=== PATIENT | female | born 1995 | race Caucasian/White ===

== ENCOUNTER 2017-05-10 02:53 | Emergency (ER) | payer OTHER ==
[2017-05-10 03:22] VITALS: BP 125/73; PULSE 90; TEMP 97.7; BMI 19.1
[2017-05-10] MEDS ORDERED: KETOROLAC TROMETHAMINE 60 MG/2 ML VIAL IM ONE (03:45)
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
--- NOTE | 2017-05-10 03:54 | PDOC ---
Attending Attestation - Resident Resident Name: Brant Terry - ED Attending Attestation I have performed the following: I have examined & evaluated the patient, The case was reviewed & discussed with the resident, I agree w/resident's findings & plan, Exceptions are as noted
[2017-05-10] MEDS ORDERED: KETOROLAC TROMETHAMINE 60 MG/2 ML VIAL ONE (04:02)
== END 2017-05-10 05:58 | disposition home or self-care (01) ==
LOC: JER 02:53
PROC: 3E0233Z Introduction of Anti-inflammatory into Muscle, Percutaneous Approach (ICD-10-PCS; principal; 2017-05-10)
DX: S59.801A Other specified injuries of right elbow, initial encounter (principal); S69.82XA Other specified injuries of left wrist, hand and finger(s), initial encounter; V03.90XA Pedestrian on foot injured in collision with car, pick-up truck or van, unspecified whether traffic or nontraffic accident, initial encounter; Y92.414 Local residential or business street as the place of occurrence of the external cause; Y93.89 Activity, other specified
CPT/HCPCS: 73070-TC-RT; 73110-TC-LT; 73130-TC-LT; 73523-TC; 84703; 99281-25

== ENCOUNTER 2017-06-18 08:26 | Emergency (ER) | payer OTHER ==
[2017-06-18 08:35] VITALS: BP 116/61; PULSE 87; TEMP 98.7; BMI 18.8
[2017-06-18] MEDS ORDERED: ACETAMINOPHEN 500 MG TABLET (FP) PO ONE (09:05)
[2017-06-18] MEDS ORDERED: ACETAMINOPHEN 500 MG TABLET (FP) ONE (09:09)
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
[2017-06-18 09:21] LABS: PH,URINE 5.5 (5.0-8.0); URINE APPEARANCE CLEAR; URINE BILIRUBIN NEGATIVE (NEGATIVE); URINE BLOOD NEGATIVE (NEGATIVE); URINE COLOR LT. YELLOW; URINE GLUCOSE (UA) NEGATIVE (NEGATIVE); URINE KETONE 1+ (NEGATIVE); URINE NITRITE NEGATIVE (NEGATIVE); URINE UROBILINOGEN 0.2 mg/dL (0.2-1.0)
[2017-06-18 09:27] LABS: URINE PROTEIN 1+ (NEGATIVE)
[2017-06-18 09:53] LABS: GRANULAR CASTS 4 /lpf; URINE MUCUS MANY; URINE RBC 2 /hpf (0-3); URINE WBC 9 /hpf (3-5)
[2017-06-18 17:30] LABS: URINE LEUK ESTERASE Negative (NEGATIVE)
== END 2017-06-18 10:55 | disposition home or self-care (01) ==
LOC: JERFT 08:26
DX: S00.83XA Contusion of other part of head, initial encounter (principal); S10.83XA Contusion of other specified part of neck, initial encounter; S40.022A Contusion of left upper arm, initial encounter; Y04.2XXA Assault by strike against or bumped into by another person, initial encounter; Y93.89 Activity, other specified; Y92.038 Other place in apartment as the place of occurrence of the external cause; Y07.03 Male partner, perpetrator of maltreatment and neglect
CPT/HCPCS: 70450-TC; 81003; 81015; 84703; 99281-25

== ENCOUNTER 2018-05-13 09:38 | Emergency (ER) | payer SELFPAY ==
[2018-05-13 09:57] VITALS: BP 121/55; PULSE 91; TEMP 98.9; BMI 20.5
[2018-05-13] MEDS ORDERED: DEXAMETHASONE 4 MG TABLET (FP) PO STA (10:18)
[2018-05-13] MEDS ORDERED: DEXAMETHASONE SOD PHOSPHATE 10 MG/1 ML VIAL ONE (10:26)
--- NOTE | 2018-05-13 11:14 | PDOC ---
History of Present Illness - General Chief Complaint: Sore Throat Stated Complaint: SORE THROAT Time Seen by Provider: 05/13/18 10:08 History Source: Patient Exam Limitations: No Limitations - History of Present Illness Initial Comments: 05/13/18 11:08 22 yr female no pmhx with sore throat diff swallowing for 3 days no fever, also with bilateral conjunctivitis. Past History - Past Medical History Allergies/Adverse Reactions: Allergies Allergy/AdvReac Type Severity Reaction Status Date / Time No Known Allergies Allergy Verified 05/13/18 09:53 Home Medications: Ambulatory Orders No Home Medications 0 dose .ROUTE UTDICT 08/06/12 Ibuprofen 800 mg PO TID PRN #20 tablet 05/13/18 Sulfacetamide Sodium 10% [Bleph-10] 2 drop OU Q3H #1 bottle 05/13/18 Asthma: No Cancer: No Cardiac Disorders: No CVA: No COPD: No CHF: No DVT: No Dementia: No Diabetes: No Dialysis: No GI Disorders: No Disorders: No - Immunization History Immunization Up to Date: Yes - Suicide/Smoking/Psychosocial Hx Smoking Status: No Smoking History: Never smoked Have you smoked in the past 12 months: No Number of Cigarettes Smoked Daily: 0 Hx Alcohol Use: No Drug/Substance Use Hx: No Substance Use Type: None *Physical Exam - Vital Signs Last Vital Signs Temp Pulse Resp BP Pulse Ox 98.9 F 91 H 16 121/55 L 99 05/13/18 09:55 05/13/18 09:55 05/13/18 09:55 05/13/18 09:55 05/13/18 09:55 - Physical Exam General Appearance: Yes: Nourished, Appropriately Dressed HEENT: positive: EOMI, JAVON, Pharyngeal Erythema, Tonsillar Erythema, Other ( bilateral conjunctiva discharge white, pink conjunctiva ). negative: Tonsillar Exudate Neck: positive: Supple. negative: Tender, Lymphadenopathy (R), Lymphadenopathy (L) Respiratory/Chest: positive: Lungs Clear, Normal Breath Sounds Cardiovascular: positive: Regular Rhythm, Regular Rate Gastrointestinal/Abdominal: positive: Normal Bowel Sounds, Soft Musculoskeletal: positive: Normal Inspection Extremity: positive: Normal Capillary Refill, Normal Inspection, Normal Range of Motion Integumentary: positive: Normal Color, Dry, Warm Neurologic: positive: Fully Oriented, Alert, Normal Mood/Affect, Normal Response , Motor Strength 5/5 ED Treatment Course - Medications Given in the ED: ED Medications Discontinued Medications Generic Name Dose Route Start Last Admin Trade Name Danika PRN Reason Stop Dose Admin Dexamethasone 10 mg 05/13/18 10:18 05/13/18 10:27 Decadron - PO 05/13/18 10:19 10 mg ONCE STA Administration Medical Decision Making - Medical Decision Making 05/13/18 11:24 cc: sore throat , no fever dry cough bilateral conjunctiva red with scant discharge will give decadron now, check for strep no exudate however pt has swollen tonsils with erythema no abd pain or nvd no sick contacts *DC/Admit/Observation/Transfer Diagnosis at time of Disposition: Conjunctivitis Qualifiers: Conjunctivitis type: acute Acute conjunctivitis type: unspecified Laterality: bilateral Qualified Code(s): H10.33 - Unspecified acute conjunctivitis, bilateral Pharyngitis Qualifiers: Pharyngitis/tonsillitis etiology: unspecified etiology Qualified Code(s): J02.9 - Acute pharyngitis, unspecified - Discharge Dispostion Disposition: HOME Condition at time of disposition: Good - Prescriptions Prescriptions: Ibuprofen 800 mg PO TID PRN #20 tablet PRN Reason: Pain Sulfacetamide Sodium 10% [Bleph-10] 2 drop OU Q3H #1 bottle - Referrals - Patient Instructions Printed Discharge Instructions: DI for Viral Pharyngitis Additional Instructions: NEGATIVE RAPID STREP we will call you if the culture is positive in a few days drink pleanty of fluids to stay well hydrated use the eye drops as prescribed gargle with warm salt water 4-5 times a day throat lozengers as directed take ibuprofen as directed for pain - Post Discharge Activity Forms/Work/School Notes: Back to Work, Back to School
== END 2018-05-13 11:34 | disposition home or self-care (01) ==
LOC: JERFT 09:38
DX: J02.9 Acute pharyngitis, unspecified (principal); H10.33 Unspecified acute conjunctivitis, bilateral
CPT/HCPCS: 87070; 87077; 87430; 99281-25

== ENCOUNTER 2018-10-06 14:15 | Emergency (ER) | payer OTHER ==
[2018-10-06 14:50] VITALS: BP 127/67; PULSE 88; TEMP 98.2; BMI 20.3
--- NOTE | 2018-10-06 14:50 | PDOC ---
Rapid Medical Evaluation Chief Complaint: Nasal Bleeding Time Seen by Provider: 10/06/18 14:47 Medical Evaluation: Allergies Allergy/AdvReac Type Severity Reaction Status Date / Time No Known Allergies Allergy Verified 05/13/18 09:53 10/06/18 14:47 I have performed a brief in-person evaluation of this patient. The patient presents with a chief compliant of nose bleeding today. Patient reports nose bleeding and headaches States occurring more frequently. States bleeding occurs in sleep also Denies nausea Pertinent physical exam findings NAD HEENT: no active nose bleeding unlabored breathing I have ordered the following The patient will proceed to the ED for further evaluation. Discharge Disposition - Diagnosis Nosebleed - Referrals - Patient Instructions - Post Discharge Activity
--- NOTE | 2018-10-06 15:18 | PDOC ---
History of Present Illness - General Chief Complaint: Nasal Bleeding Stated Complaint: NOSEBLEED Time Seen by Provider: 10/06/18 14:47 History Source: Patient Exam Limitations: No Limitations - History of Present Illness Initial Comments: 10/06/18 15:16 The patient is a 23-year-old female with no past medical history who presents to the emergency department today for nosebleeds. Patient states that she has had 2 nosebleeds over the past 24 hours and one woke her from sleep. She states she was able to control the bleeding on her own at home. She presents for evaluation. No active bleeding at this time. Denies earache, sore throat, fever , difficulty breathing. Past History - Travel Traveled outside of the country in the last 30 days: No Close contact w/someone who was outside of country & ill: No - Past Medical History Allergies/Adverse Reactions: Allergies Allergy/AdvReac Type Severity Reaction Status Date / Time No Known Allergies Allergy Verified 05/13/18 09:53 Home Medications: Ambulatory Orders No Home Medications 0 dose .ROUTE UTDICT 08/06/12 Ibuprofen 800 mg PO TID PRN #20 tablet 05/13/18 Sulfacetamide Sodium 10% [Bleph-10] 2 drop OU Q3H #1 bottle 05/13/18 Amoxicillin - [Amoxicillin 500mg Capsule -] 500 mg PO TID #21 capsule 05/15/18 Asthma: No Cancer: No Cardiac Disorders: No CVA: No COPD: No CHF: No DVT: No Dementia: No Diabetes: No Dialysis: No GI Disorders: No Disorders: No - Immunization History Immunization Up to Date: Yes - Suicide/Smoking/Psychosocial Hx Smoking Status: No Smoking History: Never smoked Have you smoked in the past 12 months: No Number of Cigarettes Smoked Daily: 0 Hx Alcohol Use: No Drug/Substance Use Hx: No Substance Use Type: None Review of Systems - Review of Systems Able to Perform ROS?: Yes Comments:: 10/06/18 15:14 CONSTITUTIONAL: Absent: fever, chills, diaphoresis, generalized weakness, malaise, loss of appetite HEENT: Present: nose bleeds Absent: rhinorrhea, nasal congestion, throat pain, throat swelling, difficulty swallowing, mouth swelling, ear pain, eye pain, visual Changes CARDIOVASCULAR: Absent: chest pain, loss of consciousness, palpitations, irregular heart rate, peripheral edema RESPIRATORY: Absent: cough, shortness of breath, dyspnea with exertion, orthopnea, wheezing, stridor, hemoptysis GASTROINTESTINAL: Absent: abdominal pain, abdominal distension, nausea, vomiting, diarrhea, constipation, melena, hematochezia GENITOURINARY: Absent: dysuria, frequency, urgency, hesitancy, hematuria, flank pain, genital pain MUSCULOSKELETAL: Absent: myalgia, arthralgia, joint swelling SKIN: Absent: rash, itching, pallor HEMATOLOGIC/IMMUNOLOGIC: Absent: easy bleeding, easy bruising, lymphadenopathy, frequent infections ENDOCRINE: Absent: unexplained weight gain, unexplained weight loss, heat intolerance, cold intolerance NEUROLOGIC: Absent: headache, focal weakness or paresthesias, dizziness, unsteady gait, seizure, mental status changes, bladder or bowel incontinence PSYCHIATRIC: Absent: anxiety, depression, suicidal or homicidal ideation, hallucinations. Is the patient limited Kiswahili proficient: No *Physical Exam - Vital Signs Last Vital Signs Temp Pulse Resp BP Pulse Ox 98.2 F 88 16 127/67 98 10/06/18 14:46 10/06/18 14:46 10/06/18 14:46 10/06/18 14:46 10/06/18 14:46 - Physical Exam Comments: 10/06/18 15:15 GENERAL: Well developed, well nourished. Awake and alert. No acute distress. HEENT: Normocephalic, atraumatic. PERRLA, EOMI. No conjunctival pallor. Sclera are non- icteric. Dry nasal membranes with scabbing to kesslebach's plexus. Oropharynx is clear. NECK: Supple. Full ROM. No JVD. Carotid pulses 2+ and symmetric, without bruits. No thyromegaly. No lymphadenopathy. SKIN: Warm and dry. Normal capillary refill. No rashes. No jaundice. NEUROLOGICAL: Alert, awake, appropriate. Cranial nerves 2-12 intact. No deficits to light touch and temperature in face, upper extremities and lower extremities. No motor deficits in the in face, upper extremities and lower extremities. Normoreflexic in the upper and lower extremities. Normal speech. Toes are down- going bilaterally. Gait is normal without ataxia. PSYCHIATRIC: Cooperative. Good eye contact. Appropriate mood and affect. Moderate Sedation - Procedure Monitoring Vital Signs: Procedure Monitoring Vital Signs Temperature 98.2 F 10/06/18 14:46 Pulse Rate 88 10/06/18 14:46 Respiratory Rate 16 10/06/18 14:46 Blood Pressure 127/67 10/06/18 14:46 O2 Sat by Pulse Oximetry (%) 98 10/06/18 14:46 Medical Decision Making - Medical Decision Making 10/06/18 15:17 Patient is a 23-year-old female who presents to the ER today for nosebleeds at home. Patient appears well at this time in no acute distress. Scabs present to the Kesselbach plexus. No active bleeding. Discharge home with symptomatic relief and ENT follow-up. I discussed the physical exam findings, ancillary test results and final diagnoses with the patient. I answered all of the patient's questions. The patient was satisfied with the care received and felt comfortable with the discharge plan and treatment plan. The Patient agrees to follow up with the primary care physician/specialist within 24-72 hours. Return precautions were given. *DC/Admit/Observation/Transfer Diagnosis at time of Disposition: Nosebleed - Discharge Dispostion Disposition: HOME Condition at time of disposition: Stable Decision to Admit order: No - Referrals Referrals: Minh Green MD [Staff Physician] - - Patient Instructions Printed Discharge Instructions: DI for Nosebleed Additional Instructions: There is no bleeding currently. For future nosebleeds, please apply direct pressure to the nose for 10 minutes without stopping. Do not blow your nose in between. You may apply ice to the nose. Please purchase normal saline nasal spray at the pharmacy. Use this in the morning and night to help keep your nose moist. A humidifier may help as well. Please follow-up with ENT. A referral has been provided. Return to the ED for any new or worsening symptoms - Post Discharge Activity Forms/Work/School Notes: Back to Work
== END 2018-10-06 15:26 | disposition home or self-care (01) ==
LOC: JERFT 14:15
DX: R04.0 Epistaxis (principal)
CPT/HCPCS: 99281-25

== ENCOUNTER 2019-02-22 16:13 | Emergency (ER) | payer OTHER ==
[2019-02-22 16:25] VITALS: BMI 19.3
[2019-02-22] MEDS ORDERED: DOCUSATE SODIUM 100 MG CAPSULE (FP) PO ONE (17:11)
--- NOTE | 2019-02-22 17:20 | PDOC ---
History of Present Illness - General Chief Complaint: Constipation Stated Complaint: 3M//CONSTIPATED Time Seen by Provider: 02/22/19 16:41 - History of Present Illness Initial Comments: 02/22/19 17:15 23F 12 week presents to the emergency department with tenesmus, rectal pain and difficulty moving her bowels for the past 2 days. She managed to moved her bowels yesterday with great difficulty using a q-tip to stimulate her transit but she still felt she had to go afterwards. Yesterday was straining a lot on the toilet, and developed pain over the anus. Denies seeing blood in her stool. She is followed by OMI Polanco at [facility] for her . Last ultrasound was unremarkable. Admits to not hydrating as often as she should. Denies vaginal discharge, dysuria, lower right quadrant pain, nausea, vomiting or fever/chills. Past History - Past Medical History Allergies/Adverse Reactions: Allergies Allergy/AdvReac Type Severity Reaction Status Date / Time No Known Allergies Allergy Verified 02/22/19 16:25 Home Medications: Ambulatory Orders No Home Medications 0 dose .ROUTE UTDICT 08/06/12 Ibuprofen 800 mg PO TID PRN #20 tablet 05/13/18 Sulfacetamide Sodium 10% [Bleph-10] 2 drop OU Q3H #1 bottle 05/13/18 Amoxicillin - [Amoxicillin 500mg Capsule -] 500 mg PO TID #21 capsule 05/15/18 Polyethylene Glycol 3350 [Miralax (For Daily Use) -] 17 gm PO BID #1 bottle 11/07 Sennosides/Docusate Sodium [Colace 2-in-1 Tablet] 1 each PO BID PRN #14 tablet 02/22/19 Asthma: No Cancer: No Cardiac Disorders: No CVA: No COPD: No CHF: No DVT: No Dementia: No Diabetes: No Dialysis: No GI Disorders: No Disorders: No - Immunization History Immunization Up to Date: Yes - Suicide/Smoking/Psychosocial Hx Smoking Status: No Smoking History: Never smoked Have you smoked in the past 12 months: No Number of Cigarettes Smoked Daily: 0 Hx Alcohol Use: No Drug/Substance Use Hx: No Substance Use Type: None Abd/GI Specific PMHX - Complaint Specific PMHX Colitis: No Diverticulitis: No Gall Bladder Disease: No GERD: No Hepatitis: No Irritable Bowel Synd (IBS): No Pancreatitis: No GI Ulcer Disease: No Review of Systems - Review of Systems Able to Perform ROS?: Yes Is the patient limited Kyrgyz proficient: No Constitutional: No: Symptoms Reported HEENTM: No: Symptoms Reported Respiratory: No: Symptoms reported Cardiac (ROS): No: Symptoms Reported ABD/GI: Yes: See HPI : No: Symptoms Reported Musculoskeletal: No: Symptoms Reported Integumentary: No: Symptoms Reported All Other Systems: Reviewed and Negative *Physical Exam - Vital Signs Last Vital Signs Temp Pulse Resp BP Pulse Ox 98.8 F 93 H 18 104/57 L 99 02/22/19 16:23 02/22/19 16:23 02/22/19 16:23 02/22/19 16:23 02/22/19 16:23 - Physical Exam General Appearance: Yes: Nourished, Appropriately Dressed. No: Apparent Distress HEENT: positive: EOMI, JAVON, Normal ENT Inspection Respiratory/Chest: positive: Lungs Clear, Normal Breath Sounds. negative: Chest Tender, Respiratory Distress Cardiovascular: positive: Regular Rhythm, Regular Rate, S1, S2 Gastrointestinal/Abdominal: positive: Normal Bowel Sounds, Tender (upper left quadrant) Rectal Exam: positive: normal exam, normal rectal tone, other (no fissures. ). negative: decreased tone, hemorrhoids Musculoskeletal: positive: Normal Inspection. negative: CVA Tenderness Extremity: positive: Normal Capillary Refill, Normal Inspection, Normal Range of Motion Integumentary: positive: Normal Color, Dry, Warm Neurologic: positive: Fully Oriented, Alert, Normal Mood/Affect, Normal Response Medical Decision Making - Medical Decision Making 02/22/19 17:20 23F 12 weeks presenting with tenesmus, rectal pain and constipation for the past 2 days. No external hemorrhoids or fissures appreciated on exam. Low suspicion for appendicitis as no pain over lower right quadrant, no fever, no nausea or vomiting, patient comfortable. Increased progesterone in is known to slow the colonic smooth muscle activity. Will give trial of colace. UA with leukocytes but presence of epithelial cells and few bacteria. PAtient appears dehydrated, not eating much since hence presence of ketones. Patient ok to be discharged. Counseled on importance of staying hydrated Will give rx for miralax and colace. Follow up appointment with OBGYN is on the . *DC/Admit/Observation/Transfer Diagnosis at time of Disposition: Constipation by delayed colonic transit - Discharge Dispostion Disposition: HOME Condition at time of disposition: Fair Decision to Admit order: No - Referrals Referrals: Sherri Ardon CNM [Primary Care Provider] - - Patient Instructions Printed Discharge Instructions: Increased Dietary Fiber May Improve Constipation Conditions With Pelvic Darius, DI for Constipation Additional Instructions: Follow up with your OBGYN on February 25. Come back to the emergency department for any new, worsening or concerning symptom. - Post Discharge Activity
--- NOTE | 2019-02-22 17:42 | PDOC ---
Documentation entered by Nuris Petersen SCRIBE, acting as scribe for Adrianna Obrien MD. Adrianna Obrien MD: This documentation has been prepared by the scribe, Nuris Petersen SCRIBE, under my direction and personally reviewed by me in its entirety. I confirm that the documentation accurately reflects all work, treatment, procedures, and medical decision making performed by me. Attending Attestation - Resident Resident Name: [email or web address] - ED Attending Attestation I have performed the following: I have examined & evaluated the patient, The case was reviewed & discussed with the resident, I agree w/resident's findings & plan, Exceptions are as noted - HPI HPI: 02/22/19 17:43 The patient is a 23 year old female, currently 12 weeks , presents to the emergency department with 2 days of constipation with hard stool passing yesterday. Denies vaginal bleeding or discharge. [facility] care at [address] [place] [id number]. Allergies: NKDA - Physicial Exam PE: 02/22/19 17:42 GENERAL: Well developed, well nourished. Awake and alert. No acute distress. HEENT: Normocephalic, atraumatic. PERRLA, EOMI. No conjunctival pallor. Sclera are non- icteric. Moist mucous membranes. Oropharynx is clear. NECK: Supple. Full ROM. No JVD. CARDIOVASCULAR: Regular rate and rhythm. No murmurs, rubs, or gallops. Distal pulses are 2+ and symmetric. PULMONARY: No evidence of respiratory distress. Lungs clear to auscultation bilaterally. No wheezing, rales or rhonchi. ABDOMINAL:+mid left side abdominal tenderness, no guarding or rebound. MUSCULOSKELETAL Normal range of motion at all joints. No bony deformities. EXTREMITIES: No cyanosis. No clubbing. No edema. SKIN: Warm and dry. Normal capillary refill. No rashes. No jaundice. NEUROLOGICAL: Alert, awake, appropriate. Cranial nerves 2-12 intact. PSYCHIATRIC: Cooperative. Good eye contact. Appropriate mood and affect - Medical Decision Making 02/22/19 17:36 23 yo female has c/o of hard stool and straining and states she is 12 weeks . Denies any vaginal bleeding or cramping 02/22/19 17:38 on exam there are no thrombosed haemorrhoids,no active bleeding,no anal fissures -soft abdomen, no rebound,no guarding
[2019-02-22 18:22] LABS: EPI CELLS 1.2 /HPF (0-5/HPF); HYALINE CASTS 26 /lpf (0-8); PH,URINE 5.5 (5.0-8.0); URINE APPEARANCE CLEAR; URINE BACTERIA 25.4 /hpf (NEGATIVE); URINE BILIRUBIN NEGATIVE (NEGATIVE); URINE COLOR YELLOW; URINE GLUCOSE (UA) NEGATIVE (NEGATIVE); URINE KETONE 1+ (NEGATIVE); URINE LEUK ESTERASE 2+ (NEGATIVE); URINE NITRITE NEGATIVE (NEGATIVE); URINE PROTEIN NEGATIVE (NEGATIVE); URINE RBC 1 /hpf (0-4); URINE UROBILINOGEN 0.2 mg/dL (0.2-1.0); URINE WBC 34 /hpf (0-5)
[2019-02-22 18:47] VITALS: BP 98/53; PULSE 74; TEMP 98.5
== END 2019-02-22 18:50 | disposition home or self-care (01) ==
LOC: JER 16:13
DX: O26.891 Other specified pregnancy related conditions, first trimester (principal); O99.611 Diseases of the digestive system complicating pregnancy, first trimester; K59.01 Slow transit constipation; K31.89 Other diseases of stomach and duodenum; Z3A.12 12 weeks gestation of pregnancy
CPT/HCPCS: 81003; 99282-25